=== PATIENT | female | born 1975 | race Caucasian/White ===

== ENCOUNTER 2018-04-04 09:12 | Emergency (ER) | payer OTHER ==
[~2018-04-04] VITALS: Ht 157.5 cm; Wt 66.5 kg
[2018-04-04 09:55] VITALS: BP 135/98
[2018-04-04] MEDS: diphenhydrAMINE 50 MG/ML VIAL IM ONE (10:36)
[2018-04-04] MEDS: methylPREDNISolone SS 125 MG/2 ML VIAL IM ONE (10:37)
[2018-04-04 11:03] VITALS: BP 119/72
== END 2018-04-04 11:03 | disposition home or self-care (01) ==
LOC: MED 09:12
DX: L50.9 Urticaria, unspecified (principal); R03.0 Elevated blood-pressure reading, without diagnosis of hypertension
CPT/HCPCS: 96372; 99283; J1200; J2930